=== PATIENT | female | born 1970 | race African-American/Black ===

== ENCOUNTER 2017-12-01 08:55 | Emergency (ER) | payer OTHER | END 2017-12-01 10:18 | disposition home or self-care (01) | LOC: FTE 08:55 | DX: J40 Bronchitis, not specified as acute or chronic (principal); S62.623A Displaced fracture of middle phalanx of left middle finger, initial encounter for closed fracture; F17.210 Nicotine dependence, cigarettes, uncomplicated; W18.39XA Other fall on same level, initial encounter; Y92.9 Unspecified place or not applicable | CPT/HCPCS: 29130; 71045; 73130-LT; 99284-25 ==

== ENCOUNTER 2018-06-11 09:19 | Emergency (ER) | payer OTHER | END 2018-06-11 10:01 | disposition home or self-care (01) | LOC: FTE 09:19 | DX: R05 Cough (principal); F17.210 Nicotine dependence, cigarettes, uncomplicated; R11.2 Nausea with vomiting, unspecified; R19.7 Diarrhea, unspecified | CPT/HCPCS: 99283; Z7502 ==